=== PATIENT | male | born 1955 | race Caucasian/White ===

== ENCOUNTER → 2016-07-26 | Outpatient (CLI) | payer OTHER ==
[~2016-07-26] MED LIST: APIX5TAB PO; CARV6.252 PO; DIGO125T PO; FURO-92 PO; FURO-93 PO; LISI2.5T PO; OMNIPAQUE 350 MG/ML, 100ML BOTTLE ONE; ONDA8TAB9 PO; POTA10TA11 PO; PROC5TAB40 PO; SIMV20TA3 PO
== END | disposition home or self-care (01) ==
LOC: MERGE 11:59 → CFH 11:59
PROVIDERS: ATTEND Internal Medicine Hematology & Oncology
DX: K80.10 Calculus of gallbladder with chronic cholecystitis without obstruction (principal); D69.6 Thrombocytopenia, unspecified
CPT/HCPCS: 71260; 74177; Q9967